=== PATIENT | female | born 1995 | race Caucasian/White ===

== ENCOUNTER 2018-03-14 07:41 | Emergency (ER) | payer BC, SELFPAY ==
[2018-03-14] MEDS ORDERED: Fluorescein Opthalmic Strip ONE (08:07)
[2018-03-14] MEDS ORDERED: Proparacaine 0.5% Opth 15 ML BOT ONE (08:07)
[2018-03-14] MEDS ORDERED: Ondansetron ODT 4 MG TAB ONE (08:39)
== END 2018-03-14 08:45 | disposition home or self-care (01) ==
LOC: ERS 07:41
DX: S05.01XA Injury of conjunctiva and corneal abrasion without foreign body, right eye, initial encounter (principal); J45.909 Unspecified asthma, uncomplicated; Y33.XXXA Other specified events, undetermined intent, initial encounter
CPT/HCPCS: 99283; Q0162

== ENCOUNTER 2019-08-09 06:29 | Day surgery (SDC) | payer BC ==
[2019-08-06 09:50] VITALS: BMI 35.7
[2019-08-09] MEDS ORDERED: Heparin 5,000 UNITS/ML VIAL ONE (07:31)
[2019-08-09 07:52] LABS: BHCG - Serum Negative (NEGATIVE); Pregs Control Background? CLEAR/WHITE (CLR/WHITE); Pregs Control Bar Appear? YES (CONTROL BAR)
[2019-08-09] MEDS ORDERED: Lidocaine 1% (PF) 30 ML VIAL ONE (09:49)
[2019-08-09] MEDS ORDERED: Bupivacaine 0.25% HCL 30 ML VIAL ONE (09:49)
[2019-08-09] MEDS ORDERED: Sodium Chloride 0.9% 20 ML ONE (09:49)
[2019-08-09] MEDS ORDERED: Gentamicin 80 MG/2 ML VIAL ONE (09:49)
[2019-08-09] MEDS ORDERED: EPINEPHrine 1 MG/ML AMP ONE (09:49)
[2019-08-09] MEDS ORDERED: Dexamethasone 20 MG/5 ML VIAL ONE ×2 (09:49→10:01)
[2019-08-09] MEDS ORDERED: Fentanyl 250 MCG/5 ML VIAL ONE (09:56)
[2019-08-09] MEDS ORDERED: Ondansetron PF 4 MG/2 ML Vial ONE (10:01)
[2019-08-09] MEDS ORDERED: PROPOFOL 200 MG/20 ML VIAL ONE (10:01)
[2019-08-09] MEDS ORDERED: Lidocaine 1% PF 5 ML VIAL ONE (10:01)
[2019-08-09] MEDS ORDERED: Rocuronium Bromide 10 MG/ML (10ML VIAL) ONE (10:01)
[2019-08-09] MEDS ORDERED: Fentanyl 100 MCG/2 ML VIAL ONE ×3 (14:11→15:59)
[2019-08-09] MEDS ORDERED: Esmolol 100 MG/10 ML VIAL ONE (15:05)
[2019-08-09] MEDS ORDERED: Meperidine HCl/PF 25 MG/ML VIAL ONE (15:12)
[2019-08-09] MEDS ORDERED: Promethazine HCl 25 MG/ML VIAL ONE (16:55)
[2019-08-09] MEDS ORDERED: HYDROcodone/Acetaminophen 5/325 mg Tablet ONE (17:06)
--- NOTE | 2019-08-10 08:53 | OP ---
DATE OF PROCEDURE: 08/09/2019 PREOPERATIVE DIAGNOSIS: Macromastia. POSTOPERATIVE DIAGNOSIS: Macromastia. PROCEDURE PERFORMED: Bilateral breast reduction. DESCRIPTION OF PROCEDURE: Following induction of adequate anesthesia, the patient was prepped and draped in the usual sterile fashion in the supine position. Attention was first turned to the left and larger breast. She wanted it to be as small as possible. A modified YA incision was made around her nipple areola. The modified Medrano pattern incisions were made. The central part of the breast was then de-epithelialized. Flaps were then raised superiorly, medially, and laterally. Dermoglandular units were then resected medially, superiorly, and laterally in an effort at scoping the pedicle to preserve viability and sensibility. The field was copiously irrigated and inspected for meticulous hemostasis prior to placement of a drain and closure of the inverted T. Closure was achieved with interrupted 3-0 PDS suture and 3-0 Monocryl suture. The nipple was brought out through a 42-mm nipple defect and similarly inset. Similar procedure was done on the right side. The patient tolerated procedure well. Job ID: [id number]
== END 2019-08-09 18:00 | disposition home or self-care (01) ==
LOC: SDC 06:29
PROVIDERS: ATTEND Plastic Surgery
PROC: 0HBV0ZZ Excision of Bilateral Breast, Open Approach (ICD-10-PCS; principal; 2019-08-09)
DX: N62 Hypertrophy of breast (principal)
CPT/HCPCS: 36415; 84703; 88305; J0171; J0690; J1100; J1580; J1644; J2001; J2175; J2405; J2550; J2704; J3010; J3370; J3490; S0020

== ENCOUNTER 2023-05-12 08:19 | Emergency (ER) | payer BC ==
[2023-05-12] MEDS ORDERED: Fluorescein Opthalmic Strip ONE (09:21)
[2023-05-12] MEDS ORDERED: Proparacaine 0.5% Opth 15 ML BOT ONE (09:21)
== END 2023-05-12 09:49 | disposition home or self-care (01) ==
LOC: ERS 08:19
DX: O9A.213 Injury, poisoning and certain other consequences of external causes complicating pregnancy, third trimester (principal); S05.01XA Injury of conjunctiva and corneal abrasion without foreign body, right eye, initial encounter; O24.415 Gestational diabetes mellitus in pregnancy, controlled by oral hypoglycemic drugs; Z3A.34 34 weeks gestation of pregnancy; X58.XXXA Exposure to other specified factors, initial encounter
CPT/HCPCS: 99283

== ENCOUNTER 2023-08-19 11:28 | Outpatient (CLI) | payer BC ==
[2023-08-19 13:06] LABS: #Eosinphils 0.3 10x3/uL (0.0-0.5); #Monocytes 0.6 10x3/uL (0.0-1.1); #Neutrophils 5.2 10x3/uL (1.5-8.4); %Basophils 0.4 % (0.0-2.0); %Eosinophils 2.7 % (0.0-6.0); %Lymphocytes 34.6 % (18.0-47.0); %Monocytes 6.3 % (0.0-10.0); %Neutrophils 55.8 % (40.0-75.0); Hematocrit 41.8 % (34.9-44.5); Hemoglobin 13.5 g/dL (12.0-15.5); Mean Corpuscular HGB CONC 32.3 g/dL (32.0-36.0); Mean Corpuscular Hemoglobin 26.8 pg (27.0-33.0); Mean Corpuscular Volume 82.9 fl (81.6-98.3); Mean Platelet Volume 12.4 fl (7.4-10.4); Platelet Count 284 10x3/uL (150-450); RBC Distribution Width 13.2 % (11.5-14.5); Red Blood Cell (RBC) Count 5.04 10x6/uL (3.90-5.03); White Blood Cell (WBC) Count 9.3 10x3/uL (3.5-10.5)
[2023-08-19 13:17] LABS: BHCG - Serum Negative (NEGATIVE); Pregs Control Background? CLEAR/WHITE (CLR/WHITE); Pregs Control Bar Appear? YES (CONTROL BAR)
[2023-08-19 13:23] LABS: ALT (SGPT) 42 U/L (8-55); AST (SGOT) 18 U/L (5-34); Albumin 4.6 g/dL (3.5-5.0); Alkaline Phosphatase 104 U/L (40-110); Bilirubin, Direct 0.1 mg/dL (0.1-0.3); Bilirubin, Total 0.2 mg/dL (0.2-1.2); Protein, Total 7.8 g/dL (6.0-8.3)
== END 2023-08-19 11:29 | disposition home or self-care (01) ==
LOC: LABBT 11:28
PROVIDERS: ATTEND Surgery
DX: Z01.812 Encounter for preprocedural laboratory examination (principal); K80.20 Calculus of gallbladder without cholecystitis without obstruction
CPT/HCPCS: 80076; 84703; 85025

== ENCOUNTER 2023-08-20 06:56 | Day surgery (SDC) | payer BC ==
[2023-08-19 12:08] VITALS: BMI 33.3
[2023-08-20] MEDS ORDERED: EPINEPHrine 1 MG/ML VIAL ONE (08:31)
[2023-08-20] MEDS ORDERED: Indocyanine Green 25 MG/10 ML VIAL ONE (08:31)
[2023-08-20] MEDS ORDERED: Bupivacaine 0.25% HCL 30 ML VIAL ONE (08:31)
[2023-08-20] MEDS ORDERED: Ondansetron PF 4 MG/2 ML Vial ONE (08:45)
[2023-08-20] MEDS ORDERED: Lidocaine 1% PF 5 ML VIAL ONE ×2 (08:45)
[2023-08-20] MEDS ORDERED: Rocuronium Bromide 10 MG/ML (10ML VIAL) ONE (08:45)
[2023-08-20] MEDS ORDERED: PROPOFOL 20 ML ONE (08:45)
[2023-08-20] MEDS ORDERED: fentaNYL PF 100 MCG/2 ML SYRINGE ONE (08:47)
[2023-08-20] MEDS ORDERED: Midazolam HCl 2 mg/2 ml Vial ONE (08:54)
[2023-08-20] MEDS ORDERED: cefOXitin 2 GM VIAL ONE (09:01)
[2023-08-20] MEDS ORDERED: Dexamethasone 20 MG/5 ML VIAL ONE (09:01)
[2023-08-20] MEDS ORDERED: Sodium Chloride 0.9% 100 ML ONE (09:01)
[2023-08-20] MEDS ORDERED: Ketorolac Tromethamine 30 MG (1 mL) VIAL ONE (09:01)
[2023-08-20] MEDS ORDERED: NEOSTIGMINE 3 MG/3 ML SYR 3 MG/3 ML SYRINGE ONE (09:40)
[2023-08-20] MEDS ORDERED: Glycopyrrolate 0.2 MG/ML 5 ML SYRINGE ONE (09:40)
[2023-08-20] MEDS ORDERED: fentaNYL 50 mcg/mL 1 mL Vial ONE ×2 (09:55→10:14)
[2023-08-20] MEDS ORDERED: Promethazine HCl 25 MG/ML VIAL ONE ×2 (10:14→10:50)
[2023-08-20] MEDS ORDERED: Morphine 2 MG/ML VIAL ONE (10:50)
[2023-08-20] MEDS ORDERED: HYDROcodone/Acetaminophen 5/325 mg Tablet ONE (13:19)
== END 2023-08-20 14:50 | disposition home or self-care (01) ==
LOC: SDC 06:56
PROVIDERS: ATTEND Surgery
PROC: 0FT44ZZ Resection of Gallbladder, Percutaneous Endoscopic Approach (ICD-10-PCS; principal; 2023-08-20)
DX: K80.10 Calculus of gallbladder with chronic cholecystitis without obstruction (principal); G43.909 Migraine, unspecified, not intractable, without status migrainosus; J45.909 Unspecified asthma, uncomplicated; J30.2 Other seasonal allergic rhinitis; Z79.899 Other long term (current) drug therapy
CPT/HCPCS: 88304; C1889; J0171; J0665; J0694; J1100; J1885; J2250; J2272; J2405; J2550; J2704; J3010; J3490